=== PATIENT | female | born 1965 | race Two or more races ===

== ENCOUNTER 2017-02-03 03:44 | Inpatient (IN) | payer OTHER ==
[~2017-02-03] VITALS: Ht 160 cm; Wt 53.8 kg
[~2017-02-03 03:44] MED LIST: AMOXICILLIN500 MG PO; BLOOD GLUCOSE1 EACH MC; FLEXERIL10 MG PO; GLUCOMETER MC; IRON 100 PLUS1 EACH PO; LANCETS1 EACH MC; METFORMIN HCL500 MG PO; NORCO 5/3251 TABLET PO; SLOW RELEASE I160 MG PO; [UNRECOGNIZED DRUG - OTHER] PO
[2017-02-03 04:31] LABS: ADD MIUA? YES; BILIRUBIN NEGATIVE; BLOOD SMALL; COLOR YELLOW ((YELLOW)); GLUCOSE (STRIP) >=500; KETONES NEGATIVE; LEUKOCYTES LARGE; NITRITE NEGATIVE; PROTEIN (STRIP) 30; SPECIFIC GRAVITY 1.023 (1.000-1.030); UROBILINOGEN 0.2 MG/DL (0.2-1.0)
[2017-02-03 04:52] LABS: CHLORIDE 98 mEq/L (99-109); POTASSIUM 3.8 mEq/L (3.7-5.4); SODIUM 134 mEq/L (136-147)
[2017-02-03 04:53] LABS: UCUL ADDED? YES; WHITE BLOOD CELLS TNTC /HPF (0-5)
[2017-02-03 04:55] LABS: ANION GAP 11 MEQ/L (2-14)
[2017-02-03 04:56] LABS: TOTAL BILIRUBIN 0.7 mg/dL (0.0-1.0)
[2017-02-03 04:58] LABS: ALKALINE PHOSPHATASE 86 IU/L (3-129); GFR ESTIMATE (CALCULATED) > 59 mL/min/; HEMATOCRIT 38.9 % (36.0-46.0); MCHC 31.1 G/DL (30.0-36.0); MCV 74.1 FL (83-99); RBC DIS.WIDTH-CV 14.6 % (11.8-14.6); RBC DIS.WIDTH-SD 38.6 % (39-53); RED BLOOD COUNT 5.25 M/uL (3.80-5.20); WHITE BLOOD COUNT 3.6 K/uL (4.1-10.2)
[2017-02-03 04:59] LABS: UREA NITROGEN (BUN) 11 mg/dL (9-23)
[2017-02-03 05:01] LABS: GLUCOSE 494 mg/dL (70-99); LIPASE 29 U/L (1.0-51.0)
[2017-02-03 05:07] LABS: QUANTITATIVE HCG < 4.0 MIU/ML
[2017-02-03 05:49] LABS: HEMATOLOGY COMMENT 1 SN; PLATELET COUNT UNABLE TO REPORT K/uL (156-360)
[2017-02-03 07:44] LABS: POINT-OF-CARE METER ID UU13113702
[2017-02-03] MEDS ORDERED: CLEOCIN300 MG PO (07:49)
[2017-02-03 07:54] LABS: AMPHETAMINE NEGATIVE (500 ng/mL); BARBITURATES NEGATIVE (200 ng/mL); BENZODIAZEPINES NEGATIVE (150 ng/mL); COCAINE NEGATIVE (150 ng/mL); INTERNAL CONTROLS VALID? YES; METHADONE NEGATIVE (200 ng/mL); METHAMPHETAMINE NEGATIVE (500 ng/mL); OPIATES (MORPHINE) PRESUMPTIVE POSITIVE (100 ng/mL); OXYCODONE NEGATIVE (100 ng/mL); PHENCYCLIDINE NEGATIVE (25 ng/mL); PROPOXYPHENE NEGATIVE (300 ng/mL); THC CANNABINOIDS NEGATIVE (50 ng/mL); TRICYCLIC ANTIDEPRESSANTS NEGATIVE (300 ng/mL)
[2017-02-03 07:55] LABS: ADD MEDTOX COMMENT Y
[2017-02-03 10:41] LABS: Estimated Average Glucose 435 mg/dL (70-123)
[2017-02-03 10:50] LABS: HEMOGLOBIN A1c (GLYCOHEMOGLOB) 16.8 % HGB (Below 5.7)
[2017-02-03 11:28] LABS: POINT-OF-CARE METER ID UU13113702
[2017-02-03 12:48] VITALS: BP 109/54
[2017-02-03 15:58] VITALS: BP 109/60
[2017-02-03 16:00] VITALS: BP 101/57
[2017-02-03 19:36] VITALS: BP 99/50
[2017-02-03 23:23] VITALS: BP 115/54
[2017-02-04 04:09] VITALS: BP 90/52
[2017-02-04 07:17] VITALS: BP 115/55
[2017-02-04 07:30] LABS: HEMATOCRIT 30.1 % (36.0-46.0); MCH 23.2 PG (29.0-34.0); MCHC 31.6 G/DL (30.0-36.0); MCV 73.6 FL (83-99); RBC DIS.WIDTH-CV 15.3 % (11.8-14.6); RBC DIS.WIDTH-SD 40.1 % (39-53)
[2017-02-04 07:38] LABS: RED BLOOD COUNT 4.09 M/uL (3.80-5.20); WHITE BLOOD COUNT 16.5 K/uL (4.1-10.2)
[2017-02-04 07:39] LABS: ANION GAP 11 MEQ/L (2-14); CHLORIDE 107 MEQ/L (99-109); GFR ESTIMATE (CALCULATED) > 59 mL/min/; GLUCOSE 113 mg/dL (70-99); POTASSIUM 3.7 MEQ/L (3.7-5.4); SAMPLE HEMOLYSIS CHECK 0; SAMPLE ICTERIC CHECK 0; SAMPLE LIPEMIA CHECK 0; SODIUM 139 MEQ/L (136-147); UREA NITROGEN (BUN) 11 mg/dL (9-23)
[2017-02-04 07:58] LABS: ABS NEUTROPHIL COUNT 14.4; ANISOCYTOSIS 1+; EOSINOPHIL ABS CT 0.2; INSTRUMENT ABS NEUTROPHIL CT 13.6 K/uL; MICROCYTOSIS 1+; PLAT.SUFFICIENCY DECREASED; PLATELET CLUMPS PRESENT - PLATELET COUNT APPEARS ADQ.; PLATELET COUNT UNABLE TO REPORT K/uL (156-360)
[2017-02-04 11:52] VITALS: BP 114/59
[2017-02-04 11:57] LABS: POINT-OF-CARE METER ID UU14162508
[2017-02-04 16:00] LABS: POINT-OF-CARE METER ID UU14162508
[2017-02-04 16:22] VITALS: BP 123/67
[2017-02-04 23:38] VITALS: BP 112/58
[2017-02-05 07:28] LABS: GFR ESTIMATE (CALCULATED) > 59 mL/min/; UREA NITROGEN (BUN) 7 mg/dL (9-23)
[2017-02-05 07:35] VITALS: BP 147/80
[2017-02-05 11:30] VITALS: BP 123/65
[2017-02-05 11:46] LABS: POINT-OF-CARE METER ID UU14162508
[2017-02-05 15:45] VITALS: BP 145/72
[2017-02-05 16:38] LABS: POINT-OF-CARE METER ID UU14162508
[2017-02-05 23:04] VITALS: BP 136/75
[2017-02-06 06:55] VITALS: BP 133/62
[2017-02-06 07:48] LABS: ANION GAP 9 MEQ/L (2-14); CHLORIDE 109 MEQ/L (99-109); GFR ESTIMATE (CALCULATED) > 59 mL/min/; GLUCOSE 128 mg/dL (70-99); MAGNESIUM 1.8 mg/dl (1.3-2.7); POTASSIUM 3.4 MEQ/L (3.7-5.4); SAMPLE HEMOLYSIS CHECK 0; SAMPLE ICTERIC CHECK 0; SAMPLE LIPEMIA CHECK 0; SODIUM 141 MEQ/L (136-147); UREA NITROGEN (BUN) 7 mg/dL (9-23)
[2017-02-06 08:42] LABS: HEMATOCRIT 32.7 % (36.0-46.0); MCH 22.8 PG (29.0-34.0); MCHC 31.5 G/DL (30.0-36.0); MCV 72.5 FL (83-99); RBC DIS.WIDTH-CV 15.8 % (11.8-14.6); RBC DIS.WIDTH-SD 40.5 % (39-53); RED BLOOD COUNT 4.51 M/uL (3.80-5.20)
[2017-02-06 08:51] LABS: PLATELET COUNT 85 K/uL (156-360); WHITE BLOOD COUNT 9.3 K/uL (4.1-10.2)
[2017-02-06 16:31] VITALS: BP 190/78
[2017-02-06 19:24] VITALS: BP 129/65
[2017-02-06 23:35] VITALS: BP 140/64
[2017-02-07 03:21] VITALS: BP 136/62
[2017-02-07 07:13] LABS: HEMATOCRIT 28.2 % (36.0-46.0); MCH 22.7 PG (29.0-34.0); MCHC 30.9 G/DL (30.0-36.0); MCV 73.6 FL (83-99); RBC DIS.WIDTH-CV 15.8 % (11.8-14.6); RBC DIS.WIDTH-SD 42.1 % (39-53); RED BLOOD COUNT 3.83 M/uL (3.80-5.20)
[2017-02-07 07:18] LABS: WHITE BLOOD COUNT 5.9 K/uL (4.1-10.2)
[2017-02-07 07:19] LABS: ANION GAP 8 MEQ/L (2-14); CHLORIDE 107 MEQ/L (99-109); GFR ESTIMATE (CALCULATED) > 59 mL/min/; MAGNESIUM 1.7 mg/dl (1.3-2.7); POTASSIUM 3.7 MEQ/L (3.7-5.4); SAMPLE HEMOLYSIS CHECK 0; SAMPLE ICTERIC CHECK 0; SAMPLE LIPEMIA CHECK 0; SODIUM 139 MEQ/L (136-147); UREA NITROGEN (BUN) 6 mg/dL (9-23)
[2017-02-07 07:20] LABS: GLUCOSE 335 mg/dL (70-99)
[2017-02-07 08:16] LABS: PLATELET COUNT 99 K/uL (156-360)
[2017-02-07 12:21] LABS: POINT-OF-CARE METER ID UU14162508
[2017-02-07 16:00] VITALS: BP 150/65
[2017-02-07 16:49] LABS: POINT-OF-CARE METER ID UU14162508
[2017-02-07 19:29] VITALS: BP 168/77
[2017-02-07 21:42] LABS: POINT-OF-CARE METER ID UU14162508
[2017-02-07 23:37] VITALS: BP 158/72
[2017-02-08 03:58] VITALS: BP 158/72
[2017-02-08 07:39] LABS: ANION GAP 7 MEQ/L (2-14); CHLORIDE 108 MEQ/L (99-109); GFR ESTIMATE (CALCULATED) > 59 mL/min/; POTASSIUM 3.3 MEQ/L (3.7-5.4); SAMPLE HEMOLYSIS CHECK 0; SAMPLE ICTERIC CHECK 0; SAMPLE LIPEMIA CHECK 0; SODIUM 141 MEQ/L (136-147); UREA NITROGEN (BUN) 5 mg/dL (9-23)
[2017-02-08 07:46] LABS: GLUCOSE 68 mg/dL (70-99)
[2017-02-08 07:53] LABS: HEMATOCRIT 30.4 % (36.0-46.0); MCH 22.5 PG (29.0-34.0); MCHC 30.6 G/DL (30.0-36.0); MCV 73.4 FL (83-99); NRBC (%) 0.3 /100 WBC (0-0); RBC DIS.WIDTH-CV 15.7 % (11.8-14.6); RBC DIS.WIDTH-SD 41.5 % (39-53); RED BLOOD COUNT 4.14 M/uL (3.80-5.20); WHITE BLOOD COUNT 6.9 K/uL (4.1-10.2)
[2017-02-08 09:38] LABS: PLAT.SUFFICIENCY DECREASED; PLATELET COUNT 121 K/uL (156-360)
[2017-02-08 12:06] LABS: POINT-OF-CARE METER ID UU14162508
[2017-02-08 13:08] LABS: POINT-OF-CARE METER ID UU14162508
[2017-02-08 15:10] LABS: Heparin Induced Plt Ab Negative (Negative)
[2017-02-08 16:07] LABS: UFH SRA Result Negative (Negative)
[2017-02-08 16:15] VITALS: BP 184/85
[2017-02-08 19:31] VITALS: BP 138/64
[2017-02-08 23:41] VITALS: BP 157/70
[2017-02-09 06:32] LABS: POINT-OF-CARE METER ID UU14162508
[2017-02-09 07:37] LABS: QUANTITATIVE HCG < 4.0 MIU/ML
[2017-02-09 07:50] LABS: HEMATOCRIT 30.4 % (36.0-46.0); MCH 22.5 PG (29.0-34.0); MCHC 30.6 G/DL (30.0-36.0); MCV 73.4 FL (83-99); NRBC (%) 0.2 /100 WBC (0-0); RBC DIS.WIDTH-CV 15.9 % (11.8-14.6); RBC DIS.WIDTH-SD 41.3 % (39-53); RED BLOOD COUNT 4.14 M/uL (3.80-5.20); WHITE BLOOD COUNT 8.4 K/uL (4.1-10.2)
[2017-02-09 07:59] LABS: MEAN PLAT.VOLUME 11.9 uM^3 (9.5-12.4); PLAT.SUFFICIENCY ADEQUATE; PLATELET COUNT 172 K/uL (156-360)
[2017-02-09 08:00] VITALS: BP 167/76
[2017-02-09 08:10] LABS: ANION GAP 8 MEQ/L (2-14); CHLORIDE 109 MEQ/L (99-109); GFR ESTIMATE (CALCULATED) > 59 mL/min/; GLOBULINS 2.5 G/DL (2.3-3.5); GLUCOSE 51 mg/dL (70-99); POTASSIUM 3.9 MEQ/L (3.7-5.4); SAMPLE HEMOLYSIS CHECK 0; SAMPLE ICTERIC CHECK 0; SAMPLE LIPEMIA CHECK 0; SODIUM 144 MEQ/L (136-147); UREA NITROGEN (BUN) 8 mg/dL (9-23)
[2017-02-09 23:50] VITALS: BP 129/64
[2017-02-10 06:42] LABS: POINT-OF-CARE METER ID UU14162508
[2017-02-10 07:23] LABS: ANION GAP 6 MEQ/L (2-14); CHLORIDE 107 MEQ/L (99-109); GFR ESTIMATE (CALCULATED) > 59 mL/min/; POTASSIUM 4.1 MEQ/L (3.7-5.4); SAMPLE HEMOLYSIS CHECK 0; SAMPLE ICTERIC CHECK 0; SAMPLE LIPEMIA CHECK 0; SODIUM 140 MEQ/L (136-147); UREA NITROGEN (BUN) 6 mg/dL (9-23)
[2017-02-10 07:24] LABS: GLUCOSE 220 mg/dL (70-99)
[2017-02-10 08:59] VITALS: BP 138/84
[2017-02-10] MEDS ORDERED: LEVEMIR100 UNIT/2 SC (09:45)
[2017-02-10] MEDS ORDERED: LOPRESSOR25 MG PO (09:45)
[2017-02-10] MEDS ORDERED: CIPRO500 MG PO (09:45)
[2017-02-10] MEDS ORDERED: IRON325 MG PO (09:50)
[2017-02-10 10:22] LABS: ALBUMIN 2.42 G/DL (3.6-4.9); ALBUMIN PERCENT 46.5 %; ALPHA-1 GLOBULIN 0.34 G/DL (0.15-0.40); ALPHA-1 PERCENT 6.5 %; ALPHA-2 GLOBULIN 0.99 G/DL (0.45-0.85); BETA PERCENT 16.2 %; GAMMA PERCENT 11.8 %
[2017-02-10 10:46] VITALS: BP 140/72
[2017-02-10] MEDS ORDERED: GLUCOMETER MC (17:21)
[2017-02-11 14:16] LABS: IFE GEL NO. 41-4
[2017-02-11 21:48] LABS: HGBE Erythrocyte Cnt 4.13 Mill/uL (3.80-5.10); HGBE Hematocrit 29.9 % (35.0-45.0); HGBE Hemoglobin 9.6 g/dL (11.7-15.5); HGBE MCH 23.2 pg (27.0-33.0); HGBE MCV 72.4 FL (80.0-100.0); HGBE RDW 16.3 % (11.0-15.0)
== END 2017-02-10 18:34 | disposition home or self-care (01) | DRG 690 ==
LOC: EME 03:44 → EDOF 05:54 → 2EAST 05:54
PROVIDERS: Emergency Medicine; Hospitalist; Internal Medicine; Internal Medicine Hematology & Oncology; Physician Assistant Medical
DX: N13.6 Pyonephrosis (principal); R78.81 Bacteremia; D69.6 Thrombocytopenia, unspecified; E11.65 Type 2 diabetes mellitus with hyperglycemia; E87.2 Acidosis; B96.20 Unspecified Escherichia coli [E. coli] as the cause of diseases classified elsewhere; I10 Essential (primary) hypertension; E87.6 Hypokalemia; Z91.19 Patient's noncompliance with other medical treatment and regimen; D64.9 Anemia, unspecified; K04.7 Periapical abscess without sinus; D25.9 Leiomyoma of uterus, unspecified; Z79.84 Long term (current) use of oral hypoglycemic drugs; N92.0 Excessive and frequent menstruation with regular cycle; K05.10 Chronic gingivitis, plaque induced; C50.912 Malignant neoplasm of unspecified site of left female breast
CPT/HCPCS: 74177; 76641; 76770; 76856; 80048; 80053; 80306 90; 81003; 82565; 82728; 82948; 83021 90; 83036; 83605; 83690; 83735; 83883 90; 84165; 84520; 84702; 84999; 85025; 85027; 86022 90; 86304; 86334; 87040; 87077; 87086; 87186; 87801; 99281; 99285; J0696; J0744; J1200; J1335; J1650; J1815; J1885; J2270; J2405; J2543; J3480; J7030; J7050

== ENCOUNTER → 2017-05-12 | Outpatient (CLI) | payer OTHER ==
[~2017-05-12] MED LIST changes: +CIPRO500 MG PO; +CLEOCIN300 MG PO; +IRON325 MG PO; +LEVEMIR100 UNIT/2 SC; +LOPRESSOR25 MG PO; +NOVOLOG MI100 UNIT/4 SC; +TRAMADOL HCL50 MG PO
== END | disposition home or self-care (01) ==
LOC: NUC 12:40
DX: C50.912 Malignant neoplasm of unspecified site of left female breast (principal)
CPT/HCPCS: 78195; A9541

== ENCOUNTER 2017-05-13 05:45 | Inpatient (IN) | payer OTHER ==
[~2017-05-13] VITALS: Ht 160 cm; Wt 56.2 kg
[~2017-05-13 05:45] MED LIST changes: -TRAMADOL HCL50 MG PO
[2017-05-13 06:39] LABS: POINT-OF-CARE METER ID UU13113694
[2017-05-13 06:43] VITALS: BP 177/78
[2017-05-13 09:26] LABS: POINT-OF-CARE METER ID UU13113655; POINT-OF-CARE USER ID ENVKLS06
[2017-05-13 12:25] LABS: POINT-OF-CARE METER ID UU13113675; POINT-OF-CARE USER ID 515036437
[2017-05-13 14:40] VITALS: BP 193/84
[2017-05-13 16:34] LABS: ANION GAP 9 MEQ/L (2-14); CHLORIDE 103 MEQ/L (99-109); GFR ESTIMATE (CALCULATED) > 59 mL/min/; GLUCOSE 231 mg/dL (70-99); POTASSIUM 4.1 MEQ/L (3.7-5.4); SAMPLE HEMOLYSIS CHECK 0; SAMPLE ICTERIC CHECK 0; SAMPLE LIPEMIA CHECK 0; SODIUM 136 MEQ/L (136-147); UREA NITROGEN (BUN) 9 mg/dL (9-23)
[2017-05-13 16:45] LABS: HEMATOCRIT 28.6 % (36.0-46.0); MCH 21.4 PG (29.0-34.0); MCHC 30.4 G/DL (30.0-36.0); MCV 70.4 FL (83-99); PLAT.SUFFICIENCY DECREASED; PLATELET COUNT 112 K/uL (156-360); RBC DIS.WIDTH-SD 43.2 % (39-53); RED BLOOD COUNT 4.06 M/uL (3.80-5.20); WHITE BLOOD COUNT 12.8 K/uL (4.1-10.2)
[2017-05-13 17:50] VITALS: BP 190/85
[2017-05-13 19:36] VITALS: BP 139/77
[2017-05-13 21:32] LABS: POINT-OF-CARE METER ID UU14162508
[2017-05-13 23:33] LABS: POINT-OF-CARE METER ID UU14162508
[2017-05-14 00:14] VITALS: BP 162/72
[2017-05-14 03:53] VITALS: BP 168/74
[2017-05-14 06:11] LABS: POINT-OF-CARE METER ID UU14162508
[2017-05-14 06:47] LABS: HEMATOCRIT 28.2 % (36.0-46.0); MCH 21.4 PG (29.0-34.0); MCHC 30.5 G/DL (30.0-36.0); MCV 70.1 FL (83-99); RBC DIS.WIDTH-CV 16.8 % (11.8-14.6); RBC DIS.WIDTH-SD 42.5 % (39-53); RED BLOOD COUNT 4.02 M/uL (3.80-5.20); WHITE BLOOD COUNT 12.4 K/uL (4.1-10.2)
[2017-05-14 06:53] LABS: ANION GAP 13 MEQ/L (2-14); CHLORIDE 97 MEQ/L (99-109); GFR ESTIMATE (CALCULATED) > 59 mL/min/; GLUCOSE 190 mg/dL (70-99); SAMPLE HEMOLYSIS CHECK 0; SAMPLE ICTERIC CHECK 0; SAMPLE LIPEMIA CHECK 0; SODIUM 131 MEQ/L (136-147); UREA NITROGEN (BUN) 5 mg/dL (9-23)
[2017-05-14 07:20] LABS: PLAT.SUFFICIENCY DECREASED; PLATELET COUNT 113 K/uL (156-360)
[2017-05-14 07:21] VITALS: BP 180/72
[2017-05-14 11:11] VITALS: BP 196/76
[2017-05-14 15:23] VITALS: BP 173/75
[2017-05-14 16:12] LABS: POINT-OF-CARE METER ID UU14162508
[2017-05-14 21:24] LABS: POINT-OF-CARE METER ID UU14162508
[2017-05-15] VITALS (7 sets, daily range): BP systolic 121–171; BP diastolic 57–79
[2017-05-15 07:10] LABS: HEMATOCRIT 27.2 % (36.0-46.0); MCH 20.9 PG (29.0-34.0); MCHC 30.5 G/DL (30.0-36.0); MCV 68.5 FL (83-99); PLATELET COUNT 130 K/uL (156-360); RBC DIS.WIDTH-CV 17.1 % (11.8-14.6); RBC DIS.WIDTH-SD 41.8 % (39-53); RED BLOOD COUNT 3.97 M/uL (3.80-5.20); WHITE BLOOD COUNT 11.8 K/uL (4.1-10.2)
[2017-05-15 07:24] LABS: ANION GAP 10 MEQ/L (2-14); CHLORIDE 97 MEQ/L (99-109); GFR ESTIMATE (CALCULATED) > 59 mL/min/; POTASSIUM 3.7 MEQ/L (3.7-5.4); SAMPLE HEMOLYSIS CHECK 0; SAMPLE ICTERIC CHECK 0; SAMPLE LIPEMIA CHECK 0; SODIUM 134 MEQ/L (136-147); UREA NITROGEN (BUN) 7 mg/dL (9-23)
[2017-05-15 07:26] LABS: GLUCOSE 318 mg/dL (70-99)
[2017-05-15 07:32] LABS: POINT-OF-CARE METER ID UU14162508
[2017-05-15 12:26] LABS: POINT-OF-CARE METER ID UU14162508
[2017-05-15 16:15] LABS: POINT-OF-CARE METER ID UU14162508
[2017-05-15 21:34] LABS: POINT-OF-CARE METER ID UU14162508
[2017-05-16 04:27] VITALS: BP 126/61
[2017-05-16 06:43] LABS: POINT-OF-CARE METER ID UU14162508
[2017-05-16 07:20] VITALS: BP 126/66
[2017-05-16 07:37] LABS: HEMATOCRIT 24.5 % (36.0-46.0); MCH 20.7 PG (29.0-34.0); MCHC 30.2 G/DL (30.0-36.0); MCV 68.6 FL (83-99); PLATELET COUNT 118 K/uL (156-360); RBC DIS.WIDTH-SD 41.9 % (39-53); RED BLOOD COUNT 3.57 M/uL (3.80-5.20)
[2017-05-16 07:59] LABS: ANION GAP 8 MEQ/L (2-14); CHLORIDE 97 MEQ/L (99-109); GFR ESTIMATE (CALCULATED) > 59 mL/min/; GLUCOSE 326 mg/dL (70-99); POTASSIUM 3.8 MEQ/L (3.7-5.4); SAMPLE HEMOLYSIS CHECK 0; SAMPLE ICTERIC CHECK 0; SAMPLE LIPEMIA CHECK 0; SODIUM 137 MEQ/L (136-147); UREA NITROGEN (BUN) 9 mg/dL (9-23)
[2017-05-16] MEDS ORDERED: TRAMADOL HCL50 MG PO (10:21)
[2017-05-16 11:50] LABS: POINT-OF-CARE METER ID UU14162508
[2017-05-16 16:15] VITALS: BP 124/72
== END 2017-05-16 17:40 | disposition home health service (06) | DRG 581 ==
LOC: 2EAST 05:45 → 2SOUTH 05:45 → 2EAST 05:45 → 2SOUTH 08:16 → 2EAST 14:23 → 2SOUTH 15:27 → 2EAST 05-16 17:40
PROVIDERS: Nurse Practitioner Acute Care; Obstetrics & Gynecology Gynecologic Oncology; Surgery
PROC: 0UTC0ZZ Resection of Cervix, Open Approach (ICD-10-PCS; principal; 2017-05-13)
PROC: 0UT20ZZ Resection of Bilateral Ovaries, Open Approach (ICD-10-PCS; principal; 2017-05-13)
PROC: 07B60ZX Excision of Left Axillary Lymphatic, Open Approach, Diagnostic (ICD-10-PCS; principal; 2017-05-13)
PROC: 0UT90ZZ Resection of Uterus, Open Approach (ICD-10-PCS; principal; 2017-05-13)
PROC: 0UT70ZZ Resection of Bilateral Fallopian Tubes, Open Approach (ICD-10-PCS; principal; 2017-05-13)
PROC: 0HTU0ZZ Resection of Left Breast, Open Approach (ICD-10-PCS; principal; 2017-05-13)
DX: C50.912 Malignant neoplasm of unspecified site of left female breast (principal); D25.1 Intramural leiomyoma of uterus; D64.9 Anemia, unspecified; I10 Essential (primary) hypertension; E11.65 Type 2 diabetes mellitus with hyperglycemia; G43.909 Migraine, unspecified, not intractable, without status migrainosus; Z79.4 Long term (current) use of insulin
CPT/HCPCS: 36415; 74000; 78999; 80048; 81003; 82948; 85027; 86900; 86901; 88307; 88309; J0330; J0690; J1170; J1650; J1815; J1885; J2250; J2405; J2550; J2710; J2765; J3010; J7120

== ENCOUNTER 2017-05-26 16:40 | Emergency (ER) | payer OTHER ==
[~2017-05-26] VITALS: Ht 160 cm; Wt 50.3 kg
[~2017-05-26 16:40] MED LIST changes: +TRAMADOL HCL50 MG PO
[2017-05-26 17:31] LABS: HEMATOCRIT 31.8 % (36.0-46.0); MCH 19.9 PG (29.0-34.0); MCHC 29.6 G/DL (30.0-36.0); MCV 67.2 FL (83-99); RBC DIS.WIDTH-CV 16.3 % (11.8-14.6); RBC DIS.WIDTH-SD 39.1 % (39-53); WHITE BLOOD COUNT 13.3 K/uL (4.1-10.2)
[2017-05-26 17:32] LABS: PLATELET COUNT 292 K/uL (156-360); RED BLOOD COUNT 4.73 M/uL (3.80-5.20)
[2017-05-26 17:34] LABS: CHLORIDE 99 mEq/L (99-109); POTASSIUM 4.2 mEq/L (3.7-5.4); SODIUM 135 mEq/L (136-147)
[2017-05-26 17:36] LABS: GLUCOSE 262 mg/dL (70-99)
[2017-05-26 17:37] LABS: ANION GAP 13 MEQ/L (2-14)
[2017-05-26 17:38] LABS: TOTAL BILIRUBIN 0.4 mg/dL (0.0-1.0)
[2017-05-26 17:39] LABS: ALKALINE PHOSPHATASE 88 IU/L (3-129)
[2017-05-26 17:40] LABS: GFR ESTIMATE (CALCULATED) > 59 mL/min/
[2017-05-26 17:41] LABS: UREA NITROGEN (BUN) 10 mg/dL (9-23)
[2017-05-26 17:51] LABS: QUANTITATIVE HCG 4.1 MIU/ML
[2017-05-26 19:51] LABS: ADD MIUA? YES; BILIRUBIN NEGATIVE; BLOOD MODERATE; COLOR YELLOW ((YELLOW)); GLUCOSE (STRIP) 150; KETONES NEGATIVE; LEUKOCYTES TRACE; NITRITE NEGATIVE; PROTEIN (STRIP) NEGATIVE; SPECIFIC GRAVITY 1.011 (1.000-1.030); UROBILINOGEN 0.2 MG/DL (0.2-1.0)
[2017-05-26 20:15] LABS: BACTERIA RARE /HPF; EPITHELIAL CELLS 1+ /HPF; MUCUS TRACE /LPF; RED BLOOD CELLS 0-5 /HPF (0-5); UCUL ADDED? NO
[2017-05-26] MEDS ORDERED: ZOFRAN4 MG PO (20:38)
[2017-05-26] MEDS ORDERED: KEFLEX500 MG PO (20:38)
[2017-05-26 21:05] VITALS: BP 137/69
== END 2017-05-26 21:06 | disposition home or self-care (01) ==
LOC: EME 16:40
PROVIDERS: Nurse Practitioner Family
DX: L76.34 Postprocedural seroma of skin and subcutaneous tissue following other procedure (principal); N39.0 Urinary tract infection, site not specified; E11.65 Type 2 diabetes mellitus with hyperglycemia; R11.2 Nausea with vomiting, unspecified; Z85.3 Personal history of malignant neoplasm of breast; Z90.12 Acquired absence of left breast and nipple; Z90.710 Acquired absence of both cervix and uterus; Z79.84 Long term (current) use of oral hypoglycemic drugs
CPT/HCPCS: 80053; 81003; 84702; 85027; 99281; 99283

== ENCOUNTER 2017-06-04 20:14 | Emergency (ER) | payer OTHER ==
[~2017-06-04] VITALS: Ht 152.4 cm; Wt 52.1 kg
[~2017-06-04 20:14] MED LIST changes: +KEFLEX500 MG PO; +ZOFRAN4 MG PO
[2017-06-04 21:38] LABS: CHLORIDE 101 mEq/L (99-109); POTASSIUM 4.2 mEq/L (3.7-5.4); SODIUM 133 mEq/L (136-147)
[2017-06-04 21:40] LABS: GLUCOSE 245 mg/dL (70-99)
[2017-06-04 21:41] LABS: ANION GAP 11 MEQ/L (2-14)
[2017-06-04 21:42] LABS: TOTAL BILIRUBIN 0.2 mg/dL (0.0-1.0)
[2017-06-04 21:43] LABS: ALKALINE PHOSPHATASE 77 IU/L (3-129)
[2017-06-04 21:44] LABS: GFR ESTIMATE (CALCULATED) > 59 mL/min/
[2017-06-04 21:45] LABS: UREA NITROGEN (BUN) 12 mg/dL (9-23)
[2017-06-04 21:46] LABS: HEMATOCRIT 30.6 % (36.0-46.0); MCH 19.6 PG (29.0-34.0); MCHC 29.4 G/DL (30.0-36.0); MCV 66.5 FL (83-99); PLATELET COUNT 329 K/uL (156-360); RBC DIS.WIDTH-CV 16.6 % (11.8-14.6); RBC DIS.WIDTH-SD 38.8 % (39-53)
[2017-06-04 21:47] LABS: LIPASE 19 U/L (1.0-51.0)
[2017-06-04 22:21] LABS: ADD MIUA? NO; BILIRUBIN NEGATIVE; BLOOD NEGATIVE; COLOR YELLOW ((YELLOW)); GLUCOSE (STRIP) 50; KETONES NEGATIVE; LEUKOCYTES NEGATIVE; NITRITE NEGATIVE; PROTEIN (STRIP) NEGATIVE; SPECIFIC GRAVITY 1.009 (1.000-1.030); UCUL ADDED? NO; UROBILINOGEN 0.2 MG/DL (0.2-1.0)
[2017-06-04 23:39] VITALS: BP 178/76
== END 2017-06-04 23:40 | disposition home or self-care (01) ==
LOC: EME 20:14
PROC: 0T9B70Z Drainage of Bladder with Drainage Device, Via Natural or Artificial Opening (ICD-10-PCS; principal; 2017-06-04)
DX: R33.9 Retention of urine, unspecified (principal); K59.00 Constipation, unspecified; Z87.440 Personal history of urinary (tract) infections; Z90.710 Acquired absence of both cervix and uterus
CPT/HCPCS: 74020; 80053; 81003; 83690; 84702; 85027; 99281; 99284